=== PATIENT | male | born 1970 | race Caucasian/White ===

== ENCOUNTER 2020-10-16 09:55 | Emergency (ER) | payer BC ==
[~2020-10-16] VITALS: Ht 188 cm; Wt 84.5 kg
[2020-10-16] MEDS ORDERED: KETOROLAC 30 MG/1 ML IM ONE (10:30)
[2020-10-16] MEDS ORDERED: L.E.T SOLUTION TP ONE ×2 (10:58→11:00)
[2020-10-16] MEDS ORDERED: AMPICILLIN/SULBACTAM 3 GM in SODIUM CHLORIDE 0.9% 100 ML IV ONE (11:00)
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
[2020-10-16] MEDS ORDERED: KETOROLAC 30 MG/1 ML ONE (11:13)
[2020-10-16] MEDS ORDERED: KETOROLAC 30 MG/1 ML IVPush ONE (11:30)
--- NOTE | 2020-10-16 11:47 | NUR ---
PT STATE PAIN IS MUCH BETTER AFTER BEING MEDICATED 06/08.
--- NOTE | 2020-10-16 12:40 | NUR ---
Patient given discharge instructions and they have confirmed that they understand the instructions. Patient ambulatory crutches with steady gait.
== END 2020-10-16 12:41 | disposition home or self-care (01) ==
LOC: ED 12:30 → MERGE 12:30 → ED 12:41
DX: S80.02XA Contusion of left knee, initial encounter (principal); S81.032A Puncture wound without foreign body, left knee, initial encounter; L03.116 Cellulitis of left lower limb; Z88.2 Allergy status to sulfonamides; V87.8XXA Person injured in other specified noncollision transport accidents involving motor vehicle (traffic), initial encounter; Y93.55 Activity, bike riding; Y92.828 Other wilderness area as the place of occurrence of the external cause; Y99.8 Other external cause status
CPT/HCPCS: 96365; 96375; 99284; J0295; J1885